=== PATIENT | male | born 1980 | race Caucasian/White ===

== ENCOUNTER 2024-08-18 08:15 | Emergency (ER) | payer OTHER, SELFPAY ==
--- OUTSIDE RECORDS SUMMARY | 2024-08-18 08:19 | XMS_ITS | Encounter Summary ---
Author Organization [facility] Address [address] [place] [address] Care Team Providers Care Special Loan Officer Name Role Phone Unavailable Primary Care Provider Unavailabl e Encounter Details Date Type Department Care Team (Late st Contact Info) Description 09/10/2018 Abstract SFL CONVERSION [address] [place] [address] , Generic Conversion, Social History Tobacco Use Types Packs/Day Years Used Date Smoking Tobacco: Never Assessed Sex and Gender Information Value Date Recorded Sex Assigned at Not on file Legal Sex Male 7:25 PM CDT Gender Identity Not on file Sexual Orientation Not on file documented as of this encounter Plan of Treatment Not on file documented as of this encounter Visit Diagnoses Not on filedocumented in this encounter
--- OUTSIDE RECORDS SUMMARY | 2024-08-18 08:19 | XMS_ITS | Clinical Summary ---
Author Organization [facility] Address [address] [place] [address] Care Team Providers Care Practice Management Consultant Name Role Phone Unavailable Primary Care Provider Unavailabl e Social History Tobacco Use Types Packs/Day Years Used Date Smoking Tobacco: Never Assessed Sex and Gender Information Value Date Recorded Sex Assigned at Not on file Legal Sex Male 7:25 PM CDT Gender Identity Not on file Sexual Orientation Not on file Plan of Treatment Health Maintenance Due Date Last Done Comments Colorectal Cancer Screening Colonoscopy (10 Years) 1979 Annual Physical 08/03/1982 Hepatitis C 08/03/1997 DTaP, Tdap and Td Vaccines ( 1 - Tdap) 08/03/1998 Hepatitis B Vaccines (1 of 3 - 19+ 3-dose series) 08/03/1998 COVID-19 Vaccine (2023-2 5 season) 2023 HPV Vaccines Aged Out No longer eligi ble based on patient's age to complete this topic Meningococcal B Vaccine Aged Out No l onger eligible based on patient's age to complete this topic Meningococcal Vaccine Aged Out No jose janet eligible based on patient's age to complete this topic Pneumococcal Vaccine: Pediat rics (0 to 5 Years) and At-Risk Patients (6 to 49 Years) Aged Out No longer eligible b ased on patient's age to complete this topic RSV Immunizations Under 20 Months Aged Out No longer eligible based on patient's age to complete this topic
--- OUTSIDE RECORDS SUMMARY | 2024-08-18 08:19 | XMS_ITS | Referral Summary ---
Author Organization [address] Address [address] [place] [address] Care Team Providers Care Reproduction Machine Loader Name Role Phone Royer Blanchard MD Primary Care Provider [phone] Allergies No known active allergies Medications naproxen (ALEVE) 220 mg tablet Take 220 mg by mouth as needed for pain Active tamsulosin (FLOMAX) 0.4 mg extended release capsule TAKE 1 CAPSULE(0.4 MG) BY MOUTH DAILY 90 capsule 07/18/2021 Active Active Problems Problem Noted Date Diagnosed Date Refused influenza vaccine 01/13/2021 Class 3 severe obesity due t o excess calories with body mass index (BMI) of 40.0 to 44.9 in adult 01/13/2021 Assessment & Plan (01/13/2021 3:05 PM CDT): Reviewed diet and exercise recommendations. Encounter to establish care 01/13/2021 Assessment & Plan (01/13/2021 3:05 PM CDT): Preventive exam; reviewed recommended preventive screenings and vaccinations. Patient is vaccinated for covid-19. Encourage annual flu vaccine. Wear sunscreen/protective clothing when outdoors. No family history of colorectal cancer or prostate cancer. Encounter for screening for lipid disorder 01/13 Assessment & Plan (01/13/2021 3:03 PM CDT): Discussed diet and exercise recommendations for healthy cholesterol, patient states his diet consists of a lot of red meat. Will check lipids today. Immunizations Immunization Administration Dates Next Due Influenza, Unspecified 08/15/2021(Deferr ed: Patient Refused),01/04/2020(Deferred: Patient Refused) Pfizer SARS-CoV-2 Monovalent Vaccination (12+ Yrs) PURPLE 07/04/2020,06/13/2020 Social History Tobacco Use Types Packs/Day Years Used Date Smoking Tobacco: Never Smokeless Tobacco: Never Tobacco Cessation:Counseling Given: No PHQ-2 Answer Date Recorded PHQ-2 Total Score (If total score is 3 or more points, staff should administer the PHQ-9) 0 08/15/2021 Personal Safety Answer Date Recorded Getting School Help Needed Not on file 06/17 Sex and Gender Information Value Date Recorded Sex Assigned at Not on file 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 Gender Identity Not on file Sexual Orientation Not on file Last Filed Vital Signs Vital Sign Reading Time Taken Comments Blood Pressure 128/86 08/15/2021 8:52 AM CDT Pulse 74 08/15/2021 8:52 AM CDT Temperature 36.7 C (98.1 F) 08/15/2021 8:52 AM CDT Respiratory Rate 18 08/15/2021 8:52 AM CDT Oxygen Saturation 97% 07/18/2021 9:20 AM CDT Inhaled Oxygen Concentration - - Weight 117 kg (258 lb) 08/15/2021 8:52 AM CDT Height 171.5 cm (5' 7.5 ) 08/15/2021 8:52 AM CDT Body Mass Index 39.81 08/15/2021 8:52 AM CDT Plan of Treatment Not on file Insurance [employer] Member Subscriber Plan / Payer (Ef fective 2020-Present) Name:Tyrell Barfield Relation to Subscriber:Self Name:Tyrell Barfield Payer ID:[id number] (NAIC) Group ID:[id number] Type:CIGNA HMO/PPO Address: [address] [address] Care Teams Reproduction Machine Loader Relationship Specialty Start Date End Date Royer Blanchard MD [address] [place] [address] PCP - General Family Medicine 01/13/21
--- OUTSIDE RECORDS SUMMARY | 2024-08-18 08:19 | XMS_ITS | Clinical Summary ---
Author Organization [address] lt Address [address] [place] [address] Care Team Providers Care Creasing Machine Operator Name Role Phone Royer Blanchard MD Primary Care Provider [phone] Allergies No known active allergies Medications naproxen [...] SARS-CoV-2 Monovalent Vaccination (12+ Yrs) PURPLE 07/04/2020,06/13/2020 Surgical History Surgery Date Site/Laterality Comments TONSILLECTOMY Family History Medical History Relation Name Comments Heart disease Father Cancer Other HX of Cancer on Moms side of the family. 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 Gender Identity Not on file Sexual Orientation Not on file Obstetrics History Last Filed Vital Signs Vital Sign Reading [...] 08/15/2021 8:52 AM CDT Plan of Treatment Health Maintenance Due Date Last Done Comments Colon Cancer Screening-Colonoscopy 1979 Hepatitis C Screening 1979 DTaP/Tdap/Td Vaccine (1 - Tdap) 08/03/1990 Varicella Vaccines (1 of 2 - 13+ 2-dose series) 08/03/1992 Hepatitis B Screening 08/03/1997 Regular Well Visit/Exam 18-64 01/13/2022 01/13/2021 Depression Screening 08/15/2022 08/15/2021, 07/18/2021, 01/13/2021 Covid-19 Vaccine (3 - 2023-2 5 season) 2023 07/04/2020, 06/13/2020 Influenza Vaccine (Season Ended) 2024 HPV Vaccines Aged Out No longer eligi ble based on patient's age to complete this topic Pneumococcal vaccine <65 Aged Out No longer eligible based on patient's age to complete this topic Insurance [employer] Member Subscriber Plan / Payer (Ef fective 2020-Present) Name:Tyrell Barfield Relation to Subscriber:Self Name:Tyrell Barfield Payer ID:[id number] (NAIC) Group ID:[id number] Type:CIGNA HMO/PPO Address: [address] [address] Care Teams Creasing Machine Operator Relationship Specialty Start Date End Date Royer Blanchard MD [address] [place] [address] PCP - General Family Medicine 01/13/21
--- OUTSIDE RECORDS SUMMARY | 2024-08-18 08:19 | XMS_ITS | Clinical Summary ---
Author Organization [facility] Address [address], [facility] [address] [place] [address] Phone Care Team Providers Care Quality Control Assistant Name Role Phone Unavailable Primary Care Provider Unavailabl e Allergies No known active allergies Medications ibuprofen (MOTRIN) 200 MG Tablet Take 200 mg by mouth every 8 hours as needed. Active Active Problems No known active problems Resolved Problems Problem Noted Date Diagnosed Date Resolved Date Lower back injury 06/07/2017 Family History Medical History Relation Name Comments No Known Problems Brother No Known Problems Father No Known Problems Mother Relation Name Status Comments Brother Alive Father Alive Mother Alive Social History Tobacco Use Types Packs/Day Years Used Date Smoking Tobacco: Never Smokeless Tobacco: Never Tobacco Cessation:Counseling Given: Yes Alcohol Use Standard Drinks/Week Comments Yes 0 (1 standard drink = 0.6 oz pur e alcohol) PHQ-2 Answer Date Recorded Total Score - Questions 1-9 0 11/03 Sex and Gender Information Value Date Recorded Sex Assigned at Not on file Legal Sex Male 10:47 PM CDT Gender Identity Not on file Sexual Orientation Not on file Last Filed Vital Signs Vital Sign Reading Time Taken Comments Blood Pressure 128/96 02/24/2020 11:22 AM TOPPIECE CHOPPER Pulse 93 02/24/2020 11:22 AM TOPPIECE CHOPPER Temperature 36.3 C (97.3 F) 02/24/2020 11:22 AM TOPPIECE CHOPPER Respiratory Rate 20 02/24/2020 11:22 AM TOPPIECE CHOPPER Oxygen Saturation 96% 02/24/2020 11:22 AM TOPPIECE CHOPPER Inhaled Oxygen Concentration - - Weight 115.2 kg (254 lb) 02/24/2020 11:22 AM TOPPIECE CHOPPER Height 170.2 cm (5' 7 ) 02/24/2020 11:22 AM TOPPIECE CHOPPER Body Mass Index 39.78 02/24/2020 11:22 AM TOPPIECE CHOPPER Plan of Treatment Health Maintenance Due Date Last Done Comments Hepatitis C Virus (HCV) Screening 1979 TdaP Immunization 1979 Hepatitis B Immunization (1 of 3 - 19+ 3-dose series) 08/03/1998 Influenza Immunization (#1) 2023 SARS-COV-2 Immunization ( - 2023- season) 2023 07/04/2020, 06/13/2020 Respiratory Syncytial Virus (RSV) Immunization (Adult) (1 - 1-dose 75+ series) 08/03/2054 Meningococcal Immunization (ACWY) Aged Out No longer eligible b ased on patient's age to complete this topic Pneumococcal Immunization Combined Aged Out No longer eligible b ased on patient's age to complete this topic Rotavirus Immunization Aged Out No lo nger eligible based on patient's age to complete this topic
[2024-08-18 08:28] VITALS: BP 140/92; PULSE 101; RESP 16; TEMP 36.8; O2SAT 98
[2024-08-18 08:50] LABS: EDSTREPNEGPOS1 Positive (Negative)
--- NOTE | 2024-08-18 08:59 | ED_ITS ---
HPI - URI/Sore Throat General Chief Complaint: Upper Respiratory Infection Stated Complaint: congestion, sorethroat, rt ear discomfort Source: patient Mode of arrival: ambulatory Limitations: no limitations History of Present Illness HPI Narrative: 44-year-old male presents Express Care complaining of upper respiratory symptoms for 1.5 weeks. Patient stated thought there allergy symptoms and then left for [place]. Patient stated his symptoms progressed throughout the week starting with a sore throat, congestion, and a dry cough. Patient states he returns from [place] without any symptom relief. Patient states his throat pain is getting worse and that it hurts to swallow. Patient now states he has pain to his right ear and feels tender lymph nodes in his neck. Patient denies any significant past medical history. Patient has been taking [id number] for symptoms. Patient denies any difficulty swallowing, difficulty clearing secretions, difficulty breathing, or any chest pain, fevers, body aches, chills. Related Data Allergies Allergy/AdvReac Type Severity Reaction Status Date / Time No Known Allergies Allergy Unverified 03/22/15 13:11 Review of Systems Review of Systems: CONSTITUTIONAL: Denies fever, chills, body aches, or sweats. EYES: Denies visual changes, redness, or discharge. ENT: Positive for congestion, sore throat, and otalgia. Negative for rhinorrhea, difficulty swallowing, difficulty clearing secretions. CARDIOVASCULAR: Denies chest pain, palpitations, or edema. RESPIRATORY: Positive for cough. Negative for dyspnea. GASTROINTESTINAL: Denies abdominal pain, nausea, vomiting, or diarrhea. GENITOURINARY: Denies dysuria or hematuria. SKIN: Denies rash or itching. MUSCULOSKELETAL: Denies back pain, joint pain, or myalgia. NEUROLOGIC: Denies headache, numbness, or weakness. PSYCHIATRIC: Denies anxiety or depression. All other systems reviewed are negative, except as documented in HPI. PMFSH Comments At the time of my signature, I reviewed and agree with the nursing past medical, surgical, social, and family history. There is no relevant family history pertinent to the patient complaint. Exam Narrative: GENERAL: This is a well-nourished, well-developed adult, in no apparent distress. They are non ill-appearing, nontoxic appearing. HEAD: normocephalic, atraumatic. EYES: Sclera clear/white. Vision is grossly intact. Conjunctiva normal bilaterally. Extraocular movements intact. EARS: External ears normal, auditory canals clear and without drainage, TMs without erythema or perforation. Hearing grossly intact. NOSE: External nose normal with no obvious nasal discharge, nasal turbinates erythemic without swelling, no rhinorrhea. THROAT: Mucous membranes moist, posterior pharynx erythematous with exudate. Tonsils are erythematous without exudate. Tonsils are 2+. Uvula is midline and erythematous. NECK: Neck supple, tender with cervical lymphadenopathy, masses or thyromegaly. CARDIOVASCULAR: Regular rate and rhythm without murmurs, gallops, or rubs. RESPIRATORY: Clear to auscultation. Breath sounds equal bilaterally. No wheezes, rales, or rhonchi. SKIN: warm, Dry, intact with no suspicious lesions or rash, good texture and turgor. NEURO: awake, alert, and oriented to person, place and time. There were no obvi ous focal neurologic abnormalities. EXTREMITIES: No joint tenderness, effusion, or edema noted. BACK: Nontender without deformity. Course Course Emergency Course: Portions of this record may have been created with voice recognition software Level of Care: Express Care Visit Vital Signs Vital signs: Vital Signs Temperature 98.3 F 08/18/24 08:28 Pulse Rate 101 H 08/18/24 08:28 Respiratory Rate 16 08/18/24 08:28 Blood Pressure 140/92 H 08/18/24 08:28 Pulse Oximetry 98 08/18/24 08:28 Oxygen Delivery Room Air 08/18/24 08:28 Temperature 98.3 F 08/18/24 08:28 Pulse Rate 101 H 08/18/24 08:28 Respiratory Rate 16 08/18/24 08:28 Blood Pressure 140/92 H 08/18/24 08:28 Pulse Oximetry 98 08/18/24 08:28 Oxygen Delivery Room Air 08/18/24 08:28 MDM - URI/Sore Throat MDM Narrative Medical decision making narrative: Rapid strep positive. Symptoms consistent with strep throat. Will treat empirically with amoxicillin. Due to patient's swelling of his throat will give him a dose of dexamethasone followed by a short course. Patient denies any difficulty clearing secretions, swallowing, or breathing. No evidence of peritonsillar abscess. Discussed physical exam findings. Advised supportive measures and signs/symptoms to go to the ER. Pt is appropriate for outpt treatment and f/u. Differential Diagnosis Differential diagnosis: Likely upper respiratory infection, viral infection and pharyngitis Lab Data Attestation: I reviewed the patient's lab results. Labs: Lab Results 08/18/24 Range/Units 08:48 POC Grp A Strep Screen Positive (Negative) Discharge Plan Discharge Clinical Impression: Strep pharyngitis Patient Disposition: Home Condition: Stable Instructions: Antibiotic Form, Strep Throat (ED) Additional Instructions: You tested positive for strep throat. Please take the amoxicillin as prescribed until gone. Your given a dose of dexamethasone today for your throat swelling. Start your dexamethasone prescription tomorrow. You will be contagious for 24 hours after starting the medication. After 24 hours on antibiotics throw tooth brush away and start using a new one. Wash your sheets and cup/water bottle that is used daily. Do not share drinks. Take Tylenol or Ibuprofen for pain or fever, if able. Rest and stay hydrated. Follow up with your PCP in 3 days if symptoms are not improving. Go to the ER immediately if you develop worsening symptoms such as shortness of breath, difficulty swallowing, or excessive drooling. Patient Language: Tamazight Prescriptions: New amoxicillin 500 mg tablet 500 mg PO Q12H 10 Days Qty: 20 0RF dexamethasone 6 mg tablet 6 mg PO DAILY 3 Days Qty: 3 0RF Follow-up/Referrals: Santo,Royer Ordoñez M.D. [Primary Care Provider] - Time of Disposition: 08:55
[2024-08-18] MEDS: dexAMETHasone 10 MG/10 ML INTENSOL CONC (*BKC) PO (09:00)
== END 2024-08-18 09:06 | disposition home or self-care (01) ==
PROVIDERS: PCP Family Medicine
DX: J02.0 Streptococcal pharyngitis (principal)
CPT/HCPCS: 87880; 99213; G0463; J8540